=== PATIENT | female | born 1995 ===

== ENCOUNTER 2021-09-01 10:00 | Outpatient (CLI) | payer BC | END 2021-09-01 10:01 | disposition home or self-care (01) | LOC: BICRAD 10:00 | PROVIDERS: ATTEND Internal Medicine Rheumatology | DX: M25.562 Pain in left knee (principal) ==

== ENCOUNTER 2024-08-14 11:23 | Outpatient (CLI) | payer BC | END 2024-08-14 11:24 | disposition home or self-care (01) | LOC: BICRAD 11:23 | PROVIDERS: ATTEND Family Medicine | DX: M54.2 Cervicalgia (principal) | CPT/HCPCS: 72050 ==

== ENCOUNTER 2025-01-17 15:16 | Outpatient (CLI) | payer BC | END 2025-01-17 15:17 | disposition home or self-care (01) | LOC: BICRAD 15:16 | PROVIDERS: ATTEND Nurse Practitioner Family | DX: M54.2 Cervicalgia (principal) | CPT/HCPCS: 72040 ==